=== PATIENT | male | born 1960 | race Caucasian/White ===

== ENCOUNTER → 2018-11-14 16:06 | Outpatient (CLI) | payer OTHER, SELFPAY ==
[2018-11-14 18:58] LABS: ALB/GLOB Ratio 1.5 RATIO (0.9-2.4); AST(SGOT) 36 U/L (15-37); Alanine Aminotransfer ALT/SGPT 61 U/L (16-61); Albumin, Serum 4.6 g/dL (3.2-5.0); Alkaline Phosphatase 88 U/L (45-117); Anion Gap 11 (5-15); BUN 18 mg/dL (7-18); BUN/Creat Ratio 18.1 RATIO (10-20); Chloride 103 mmol/L (98-107); Cholesterol 256 mg/dL (200); EST Glomerular Filtration Rate 82 mL/min (>60); Est Glom Filt Rate - Afr Amer 100 mL/min (>60); Glucose 120 mg/dL (74-106); High Density Lipoprotein 35 mg/dL; Potassium 4.1 mmol/L (3.5-5.1); Protein, Total 7.6 g/dL (6.4-8.2); Sodium Level 139 mmol/L (136-145); Triglycerides 639 mg/dL
== END ==
PROVIDERS: Family Provider Family Medicine; PCP Family Medicine; Referring Provider Family Medicine; Visit Provider Family Medicine
DX: I10 Essential (primary) hypertension (principal)
CPT/HCPCS: 36415; 80053; 80061

== ENCOUNTER 2018-11-30 18:52 | Emergency (ER) | payer OTHER, SELFPAY ==
[2018-11-30 18:54] VITALS: BP 180/110; PULSE 116; RESP 18; TEMP 36.5; O2SAT 98; BMI 33.9
--- NOTE | 2018-11-30 20:00 | CT_ITS ---
STUDY: CT ABDOMEN AND PELVIS WITHOUT CONTRAST REASON FOR EXAM: Male, 58 years old. Abdomen pain RADIATION DOSAGE (If Supplied By Facility): CTDIvol = ( 17.06 ) mGy, DLP = ( 958.91 ) mGycm TECHNIQUE: Transaxial images were obtained from the dome of the diaphragm to the symphysis pubis without oral contrast, and without intravenous contrast. Sagittal and coronal images were reconstructed. Individualized dose optimization techniques were used for this CT. COMPARISON: None. FINDINGS: The visualized lung bases are unremarkable. The visualized portions of the heart are within normal limits. There is decreased attenuation of the liver consistent with steatosis. The gallbladder is contracted. It otherwise has an unremarkable appearance. No biliary ductal dilatation. Normal spleen. Normal pancreas. Normal bilateral adrenal glands. Normal right kidney. There is mild hydronephrosis with perinephric stranding of the left kidney. There is mild hydroureter with note made of an obstructing distal left ureterovesical junction calculus measuring approximately 3 mm. Normal visualized stomach. Normal small intestine. Normal colon. There are a few scattered diverticula. There is non-visualization of the appendix. No inflammatory change in the right lower quadrant. Mild atherosclerosis of the aorta noted. No aneurysm. Normal inferior vena cava. Normal retroperitoneum. Normal urinary bladder. Prominent fat extends into the inguinal canals bilaterally. Normal osseous structures. Mild degenerative spondylosis of the spine noted. CT/Abdomen/Pelvis without Cont IMPRESSION: There is a 3 mm distal left ureterovesical junction calculus with associated left-sided hydroureter and mild hydronephrosis with perinephric stranding. Hepatic steatosis noted. See above. Electronically Signed: Anai Soto MD at 21:00 EDT , Service support ,
[2018-11-30] MEDS: 0.9% Normal Saline 1,000 ML 125 ML IV (20:11)
[2018-11-30] MEDS: HYDROmorphone 1 MG/ML Syringe IV ×2 (20:11→21:39)
[2018-11-30] MEDS: Ondansetron 4 MG/2 ML Vial IV (20:12)
[2018-11-30 20:27] LABS: Absolute Lymphocyte Count 2.12 X10^3/ul (0.83-4.51); Absolute Neutrophil Count 5.7 X10^3/uL (2.0-7.7); Basophil# 0.04 X10^3/uL; Basophil% 0.5 % (0-1); Eosinophil# 0.11 X10^3/uL; Eosinophils% 1.3 % (0-5); Hematocrit 42.4 % (40-54); Hemoglobin 15.4 g/dl (13.0-16.5); Lymphocyte # 2.12 X10^3/ul (4.0); Lymphocyte % 24.3 % (19-41); Mean Corp Hgb Conc 36.3 g/gl (32-36); Mean Platelet Vol. 10.8 fl (6.2-12.0); Monocyte# 0.71 X10^3/uL; Monocyte% 8.2 % (0-10); Neutrophil # 5.72 X10^3/uL (2.7-7.7); Neutrophil % 65.6 % (47-70); Platelet Count 287 K/mm3 (150-450); RBC Distribution Width CV 12.4 % (11.6-14.6); RBC Distribution Width SD 39.6 fl (35.1-43.9); Red Blood Count 4.82 M/mm3 (4.6-6.2); White Blood Count 8.7 K/mm3 (4.4-11.0)
[2018-11-30 20:39] LABS: ALB/GLOB Ratio 1.4 RATIO (0.9-2.4); AST(SGOT) 36 U/L (15-37); Alanine Aminotransfer ALT/SGPT 56 U/L (16-61); Albumin, Serum 4.4 g/dL (3.2-5.0); Alkaline Phosphatase 82 U/L (45-117); Anion Gap 6 (5-15); BUN 21 mg/dL (7-18); BUN/Creat Ratio 14.3 RATIO (10-20); Calcium,Total 8.9 mg/dL (8.5-10.1); Chloride 105 mmol/L (98-107); Creatinine, Serum 1.47 mg/dL (0.70-1.30); EST Glomerular Filtration Rate 53 mL/min (>60); Est Glom Filt Rate - Afr Amer 64 mL/min (>60); Estimated Creatinine Clearance 57.94 ml/min; Globulin 3.2 g/dL (2.2-4.2); Glucose 178 mg/dL (74-106); Potassium 3.9 mmol/L (3.5-5.1); Protein, Total 7.6 g/dL (6.4-8.2); Sodium Level 140 mmol/L (136-145)
[2018-11-30 20:44] LABS: POSITIVE COUNT NO; POSITIVE DIFFERENTIAL NO; POSITIVE MORPHOLOGY NO
[2018-11-30 20:52] LABS: Bacteria 0 SEEN /hpf (None Seen); Mucous, Urine 0 SEEN /hpf (<or=2+); Squamous Epithelial Cells - UA 0 SEEN /hpf (0-5)
[2018-11-30 20:54] LABS: Color, Urine Yellow (Yellow); Glucose, Dipstick 100 mg/dl (Normal); Ketone-Dipstick Negative (Negative); Leukocyte Esterase-Dipstick 25 /ul (Negative); Nitrite-Dipstick Negative (Negative); Occult Blood-Urine 250 /ul (Negative); Protein-Dipstick 15 mg/dl (Negative); Specific Gravity, Urine 1.025 (1.002-1.030); Urine Bilirubin Dipstick Negative (Negative); Urine Clarity Sl. Cloudy (Clear); Urine Urobilinogen Normal (Normal)
[2018-11-30 21:03] LABS: Red Blood Cells-Urine 25-50 SEEN /hpf (0-5); White Blood Cells 0-5 SEEN /hpf (0-5)
--- NOTE | 2018-11-30 21:28 | ED.DCSUM_ITS ---
- ER Visit Summary Date of Service: 11/30/18 Chief Complaint: [Abdominal pain History of Present Illness: The patient is a 58 M [presents the emergency department with abdominal pain that started around 5 PM. Patient rates his pain currently as an 8 out of 10 and describes it as lower abdomen. He attempted to induce vomiting x1 unsuccessfully. Patient has not had any diarrhea. Denies fever. Denies urinary symptoms. Patient is not had pain like this before. Patient has history of hypertension. Patient had prior hernia repair. [place] any blood in stool or black tarry stools.] Physical Examination: [HEENT-PERRLA, EOMI. Cranial nerves II through XII grossly intact. TMs clear. Mucous membranes moist. No adenopathy. Cardiovascular-regular rate and rhythm without murmur or ectopy Lungs-clear to auscultation, chest wall stable without crepitus or subcu emphysema Abdomen-normoactive bowel sounds, soft. Patient has tenderness diffusely over the lower abdomen. Patient has guarding. There is no rebound, rigidity, or perineal signs. Extremities-intact ?4, normal range of motion, normal pulses, atraumatic] Test Results: [CBC with differential showing of 8.7, hemoglobin 15, hematocrit 42, platelets 287. Chemistries unremarkable. Urinalysis showed 25-[address] flank showed a 3 mm left UVJ stone with hydronephrosis.] Emergency Department Course and Treatment: [Patient initially was medicated with Dilaudid and Zofran. Pain did improve and currently rates it a 5 out of 10 he will be given another milligram of Dilaudid and 50 mg of Toradol.] Treatment Plan: [Patient will be dispensed urine strainers and he will be treated with naproxen and [place]. Patient will be given referral to urology for follow-up. Patient advised to return if worsening pain, fever, vomiting, or condition should worsen anyway.] Disposition: [Discharged home in stable condition] Impression: [Kidney stone with colic] This note was generated with [email or web address] dictation software. It may contain incorrect words, spelling, and punctuation that were not noted in review of the chart prior to signing ED Disposition - Plan for ED Patient: Referrals: Angel Lee MD [Primary Care Provider] -
--- NOTE | 2018-11-30 21:28 | ED.DEP ---
ED Disposition - Plan for ED Patient: Instructions: ED Stone Renal W Colic Prescriptions: Hydrocodone Bitart/Apap 5-325 [[place] 5MG-325MG] 1 tab PO Q4H PRN PRN 2 Days #20 tab PRN Reason: Pain Ondansetron [Zofran Odt] 4 mg PO Q8H PRN PRN #10 tab PRN Reason: Nausea Naproxen [Naprosyn] 500 mg PO BID PRN #20 tab Referrals: Angel Lee MD [Primary Care Provider] - John Cordova MD [STAFF PHYSICIAN] - 5-7 Days
[2018-11-30 21:35] LABS: Lactic Acid 2.3 mmol/L (0.4-2.0)
[2018-11-30] MEDS: Ketorolac 15 MG/ML Vial IV (21:37)
[2018-11-30 21:53] VITALS: RESP 18
[2018-11-30] MEDS: Ondansetron ODT 4 MG Tablet PO (21:54)
[2018-11-30] MEDS: HYDROcodone Bitartrate/Apap 5/325 Tablet PO (21:54)
[2018-11-30 22:46] LABS: Reflex Lactate? N
== END 2018-11-30 22:03 | disposition home or self-care (01) ==
LOC: ED 20:20
PROVIDERS: Emergency Provider Emergency Medicine; Family Provider Family Medicine; PCP Family Medicine
DX: N13.2 Hydronephrosis with renal and ureteral calculous obstruction (principal); K76.0 Fatty (change of) liver, not elsewhere classified; I10 Essential (primary) hypertension
CPT/HCPCS: 74176; 80053; 81001; 83605; 85025; 96361; 96374; 96375; 96376; 99283; J7030; A4216; J2405

== ENCOUNTER → 2019-09-16 15:44 | Outpatient (CLI) | payer OTHER, SELFPAY ==
--- NOTE | 2019-09-16 | COLBX_PTH ---
PATIENT: JAMILA ARCHIBALD LOC: [facility] U#:[id number] AGE/SX: 65/M ROOM: RE09/16/[address]: Dr. Corey Mead MD : 1960 BED: DIS: SPEC #: [id number] RECD: 09/16/19 15:19 STATUS: ROBERT LAY #: [id number] OLIVIA: 09/16/19 00:[address]: Corey Mead DEPT: SURGICAL PATHOLOGY RECD BY: Elijah Bingham ENTERED: 09/17/19 08:04 SP TYPE: COLON BX OTHR DR: Dr. Ridge Lee MD [facility] Tissues: Sigmoid colon biopsy Procedures: Surgery Specimen Level IV HEADER OPERATION: Colonoscopy with polypectomy PRE-OP DIAGNOSIS: History polyps TISSUE SUBMITTED: Polyp proximal sigmoid, rule out adenoma MICROSCOPIC DIAGNOSIS Proximal sigmoid colon polyp, biopsy: Tubular adenoma. AM:jesús 09/18/19 MICROSCOPIC DESCRIPTION Slides are reviewed. GROSS DESCRIPTION Received in fixative is one container labeled with the patient's name and designated proximal sigmoid polyp. The specimen consists of one irregular fragment of light meredith soft tissue that measures 0.5 x 0.3 x 0.1 cm. The specimen is totally submitted in one cassette. / AM:jesús 09/17/19 TC:5 CPT: 69029
== END ==
PROVIDERS: PCP Family Medicine; Referring Provider Internal Medicine Gastroenterology; Visit Provider Internal Medicine Gastroenterology
DX: D12.5 Benign neoplasm of sigmoid colon (principal); Z86.010 Personal history of colon polyps
CPT/HCPCS: 88305

== ENCOUNTER → 2019-11-14 10:24 | Outpatient (CLI) | payer OTHER, SELFPAY ==
[2019-11-14 12:34] LABS: ALB/GLOB Ratio 1.2 RATIO (0.9-2.4); AST(SGOT) 21 U/L (15-37); Alanine Aminotransfer ALT/SGPT 36 U/L (16-61); Albumin, Serum 3.8 g/dL (3.2-5.0); Alkaline Phosphatase 62 U/L (45-117); Anion Gap 5 (5-15); BUN 24 mg/dL (7-18); BUN/Creat Ratio 18.2 RATIO (10-20); Calcium,Total 8.9 mg/dL (8.5-10.1); Chloride 99 mmol/L (98-107); Creatinine, Serum 1.32 mg/dL (0.70-1.30); EST Glomerular Filtration Rate 59 mL/min (>60); Est Glom Filt Rate - Afr Amer 72 mL/min (>60); Globulin 3.3 g/dL (2.2-4.2); Glucose 364 mg/dL (74-106); PSA,Total - Annual Screen 1.62 ng/mL (0.00-4.00); Potassium 4.4 mmol/L (3.5-5.1); Protein, Total 7.1 g/dL (6.4-8.2); Sodium Level 131 mmol/L (136-145); Thyroid Stim Hormone (TSH) 2.44 uIU/mL (0.358-3.74)
== END ==
PROVIDERS: PCP Family Medicine; Visit Provider Family Medicine
DX: E11.9 Type 2 diabetes mellitus without complications (principal); Z12.5 Encounter for screening for malignant neoplasm of prostate
CPT/HCPCS: 36415; 80053; 84153; 84403; 84443; G0103

== ENCOUNTER → 2020-04-29 14:23 | Outpatient (CLI) | payer OTHER, SELFPAY ==
[2020-04-29 18:57] LABS: Anion Gap 10 (5-15); BUN 21 mg/dL (7-18); BUN/Creat Ratio 15.2 RATIO (10-20); Calcium,Total 9.1 mg/dL (8.5-10.1); Chloride 104 mmol/L (98-107); Creatinine, Serum 1.38 mg/dL (0.70-1.30); EST Glomerular Filtration Rate 56 mL/min (>60); Est Glom Filt Rate - Afr Amer 68 mL/min (>60); Glucose 137 mg/dL (74-106); Potassium 3.6 mmol/L (3.5-5.1); Sodium Level 138 mmol/L (136-145)
== END ==
PROVIDERS: PCP Family Medicine; Referring Provider Family Medicine; Visit Provider Family Medicine
DX: E87.1 Hypo-osmolality and hyponatremia (principal)
CPT/HCPCS: 36415; 80048

== ENCOUNTER → 2020-09-08 08:46 | Outpatient (CLI) | payer OTHER, SELFPAY ==
[2020-09-08 10:45] LABS: ALB/GLOB Ratio 1.1 RATIO (0.9-2.4); AST(SGOT) 24 U/L (15-37); Alanine Aminotransfer ALT/SGPT 44 U/L (16-61); Albumin, Serum 3.9 g/dL (3.2-5.0); Alkaline Phosphatase 71 U/L (45-117); Anion Gap 8 (5-15); BUN 20 mg/dL (7-18); BUN/Creat Ratio 17.9 RATIO (10-20); Calcium,Total 8.8 mg/dL (8.5-10.1); Chloride 105 mmol/L (98-107); Cholesterol 150 mg/dL (200); Creatinine, Serum 1.12 mg/dL (0.70-1.30); EST Glomerular Filtration Rate 71 mL/min (>60); Est Glom Filt Rate - Afr Amer 86 mL/min (>60); Globulin 3.5 g/dL (2.2-4.2); Glucose 198 mg/dL (74-106); High Density Lipoprotein 30 mg/dL; Potassium 4.2 mmol/L (3.5-5.1); Protein, Total 7.4 g/dL (6.4-8.2); Sodium Level 136 mmol/L (136-145); Thyroid Stim Hormone (TSH) 4.22 uIU/mL (0.358-3.74); Triglycerides 341 mg/dL; Very Low Density Lipoprotein 68 mg/dL (5-40)
[2020-09-09 09:43] LABS: T4 Free Direct 0.89 ng/dL (0.76-1.46)
== END ==
PROVIDERS: PCP Family Medicine; Referring Provider Family Medicine; Visit Provider Family Medicine
DX: I10 Essential (primary) hypertension (principal); E11.9 Type 2 diabetes mellitus without complications
CPT/HCPCS: 36415; 80053; 80061; 84403; 84439; 84443

== ENCOUNTER → 2021-03-18 09:46 | Outpatient (CLI) | payer OTHER, SELFPAY ==
[2021-03-18 12:18] LABS: Insulin 15.9 mU/L (2.6-37.6)
[2021-03-18 12:29] LABS: ALB/GLOB Ratio 1.2 RATIO (0.9-2.4); AST(SGOT) 22 U/L (15-37); Alanine Aminotransfer ALT/SGPT 44 U/L (16-61); Albumin, Serum 4.1 g/dL (3.2-5.0); Alkaline Phosphatase 71 U/L (45-117); Anion Gap 5 (5-15); BUN 28 mg/dL (7-18); BUN/Creat Ratio 24.3 RATIO (10-20); Chloride 104 mmol/L (98-107); Cholesterol 155 mg/dL (200); Creatinine, Serum 1.15 mg/dL (0.70-1.30); EST Glomerular Filtration Rate 69 mL/min (>60); Est Glom Filt Rate - Afr Amer 84 mL/min (>60); Globulin 3.4 g/dL (2.2-4.2); Glucose 219 mg/dL (74-106); High Density Lipoprotein 33 mg/dL; Potassium 4.6 mmol/L (3.5-5.1); Protein, Total 7.5 g/dL (6.4-8.2); Sodium Level 135 mmol/L (136-145); T4 Free Direct 0.83 ng/dL (0.76-1.46); Thyroid Stim Hormone (TSH) 3.13 uIU/mL (0.358-3.74); Triglycerides 354 mg/dL; Very Low Density Lipoprotein 71 mg/dL (5-40)
== END ==
PROVIDERS: PCP Family Medicine; Referring Provider Family Medicine; Visit Provider Family Medicine
DX: E11.9 Type 2 diabetes mellitus without complications (principal); E03.9 Hypothyroidism, unspecified
CPT/HCPCS: 36415; 80053; 80061; 83525; 84439; 84443; 84681

== ENCOUNTER → 2021-06-09 07:04 | Outpatient (CLI) | payer OTHER, SELFPAY | PROVIDERS: PCP Family Medicine; Referring Provider Family Medicine; Visit Provider Family Medicine | DX: Z20.822 Contact with and (suspected) exposure to COVID-19 (principal) | CPT/HCPCS: 87635; U0005; U0003 ==

== ENCOUNTER → 2021-06-23 09:30 | Outpatient (CLI) | payer OTHER, SELFPAY ==
--- NOTE | 2021-06-23 09:35 | RAD_ITS ---
STUDY: X-RAY - LEFT SHOULDER REASON FOR EXAM: Male, 61 years old. Frozen shoulder. TECHNIQUE: 4 view(s) of the shoulder. COMPARISON: None. FINDINGS: Mild arthrosis of the glenohumeral joint. Moderate arthrosis of the AC joint. Normal acromion. Normal humeral head and visualized proximal humerus. Calcific tendinitis. Normal visualized pulmonary apex. RAD/Shoulder min 2 Views IMPRESSION: Mild arthrosis of the glenohumeral joint. Moderate arthrosis of the AC joint. Calcific tendinitis. Electronically Signed: Adalberto Kim MD at 10:13 EST , Service support ,
== END ==
PROVIDERS: PCP Family Medicine; Referring Provider Family Medicine; Visit Provider Family Medicine
DX: M75.00 Adhesive capsulitis of unspecified shoulder (principal)
CPT/HCPCS: 73030

== ENCOUNTER 2021-07-12 08:00 | Outpatient (RCR) | payer OTHER, SELFPAY ==
--- NOTE | 2021-06-29 11:13 | HP.PTEVAL ---
Patient's Visit Information JAMILA ARCHIBALD is a 61 year old M referred to Physical Therapy by Dr. Angel Lee MD with a diagnosis of L frozen shoulder. Date of Evaluation: 06/29/21 Physical Therapist: Dusty Myers DPT, OCS, CSCS - Visit Plan Frequency: 1-2x /Week Duration: 4-6 Weeks Plan: weekly to start via HEP PROM and AROM and progression of overpressure naty strengthening. Next session; check ROM and pain and progress HEP to more aggressive and or strenggthening. If not improving, may need to increase frequency for modalities however patient wishes to try at home first due to large copay. 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 X rays were OK. 5 weeks later was working an eighth grade game tripped running and landed on L shoulder. Hurt bad. Has had pain ever since and this is not going away. 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 Is usually comfortable at rest. Had covid 3 weks ago and has not done games since then and wont through end of year. L arm doesn't work like it should. Was afraid to move it, Now is moving it more and has gotten a little better. Sleep is interrupted but not in the last week. Sleeps in l side sometimes. Gets sharp pain every now and then. Reaching into fridge with L hand hurts. 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 Would not be able to get in a fight but hasn't happened and is otherwise OK. Enjoys woodworking. Reaching up with L hand is challenging. - Pain L shoulder Pain Intensity (Out of 10): 0 Pain Intensity Range: 0, 9 - Objective Posture is forward head and elevated/protracted scap with some tightness in pecs B. Cervical aROM WFL. Scapular ROM symmetrical and WFL. Elbow and wrist AROM WFL and painfree,. R shoulder aROM flexion 155, abd 150, ext rotation 65 and IR to L4. L shoulder AROM flexion 125, abd 110, ext rotation 28 and IR to PSIS. PROM same aas AROM on L shoulder and painful at end range of all motions A/PROM. reflexes 2/3 bi and tri. sensation UE WNL to gross lgiht touch UE. Strength 4+ B elbows and wrists and 4 B shoulder flexion, ab IR, ER without pain. - drop arm. - labral tests. - sulcus. Pain with HK and neer(end ROM) - Balance/Special Test Scores Quick DASH Score: 18.1800 - Goals Goal 1:: 155 flexion, 55 ext rot, L5 IR without pain in L shoulder to enhance funciton Goal Time Frame: 4-6 Weeks Goal 2:: Patient feel motion and pain leading to 90% improvement in overall activities. Goal Time Frame: 4-6 Weeks Goal 3:: 15 or less score on quick dash Goal Time Frame: 4-6 Weeks Goal 4:: I approp HEP to manage condition. Goal Time Frame: 4-6 Weeks - Rehabilitation Potential Physical Therapy Diagnosis: L shoulder pain and limited ROM effecting function. Rehabilitation Potential: Fair - Anticipated Interventions Patient/Client Instruction: Educate patient on: Condition, Plan of Care For the Purpose of:: To decrease pain, To increase ROM, To improve muscle performance and motor function, To increase tolerance to activity/condition/position Therapeutic Exercise to Include: Strength training, Passive ROM, Active ROM For the Purpose of:: To decrease pain, To increase ROM, To improve muscle performance and motor function, To increase tolerance to activity/condition/position, To improve ability of physical actions for home/community/work/leisure Manual Therapy Techniques to Include: Mobilization, Soft tissue mobilization For the Purpose of:: To increase ROM Thank you for the opportunity to evaluate your patient. For Medicare and Medicare HMO plans, please review the plan of care and approve it. It will need to be FAXED BACK to us at [phone] for Medicare purposes. For Medicare only, by signing this I certify the plan of care. Please let me know if there are questions or concerns regarding this plan of care. Physician Signature: Date:
--- NOTE | 2021-09-22 10:28 | HP.PTDCNRP_ITS ---
JAMILA ARCHIBALD was seen in my office for initial evaluation on 06/29/21. The following Plan of Care was established for this patient: Initial Frequency: 1-2x /Week Initial Duration: 4-6 Weeks Patient/Client Instruction: Educate patient on: Condition, Plan of Care For the Purpose of:: To decrease pain, To increase ROM, To improve muscle performance and motor function, To increase tolerance to activity/condition/position Therapeutic Exercise to Include: Strength training, Passive ROM, Active ROM For the Purpose of:: To decrease pain, To increase ROM, To improve muscle performance and motor function, To increase tolerance to a ctivity/condition/position, To improve ability of physical actions for home/community/work/leisure Manual Therapy Techniques to Include: Mobilization, Soft tissue mobilization For the Purpose of:: To increase ROM This patient was last seen in our office 07/12/21. Pertinent comments regarding their Physical therapy will appear below: Pt seen two visits of POC and was noticably better. He cancelled his next visit and did not schedule any further in his POC. At this point, it has been over 2 months and I will discontinue him from my care. At this point I will be discontinuing this patient from physical therapy. I would be happy to see this patient again in the future if found appropriate by the physician. Thank you! Dusty Myers, DPT, OCS, CSCS Balance/Gait/Functional tests - Balance/Special Test Scores Quick DASH Score: 18.1800
== END 2021-07-12 19:00 | disposition home or self-care (01) ==
LOC: PT 08:00
PROVIDERS: PCP Family Medicine; Referring Provider Family Medicine; Visit Provider Family Medicine
DX: M75.02 Adhesive capsulitis of left shoulder (principal)
CPT/HCPCS: 97110; 97161

== ENCOUNTER 2021-10-12 09:13 | Outpatient (CLI) | payer OTHER, SELFPAY ==
[2021-10-12 10:28] LABS: Anion Gap 6 (5-15); BUN 22 mg/dL (7-18); BUN/Creat Ratio 19.5 RATIO (10-20); Calcium,Total 8.8 mg/dL (8.5-10.1); Chloride 103 mmol/L (98-107); Creatinine, Serum 1.13 mg/dL (0.70-1.30); EST Glomerular Filtration Rate 70 mL/min (>60); Est Glom Filt Rate - Afr Amer 85 mL/min (>60); Glucose 190 mg/dL (74-106); Sodium Level 136 mmol/L (136-145); Thyroid Stim Hormone (TSH) 4.81 uIU/mL (0.358-3.74)
[2021-10-13 14:25] LABS: T4 Free Direct 0.91 ng/dL (0.76-1.46)
== END 2021-10-12 23:59 | disposition home or self-care (01) ==
LOC: MFPLAB 09:16
PROVIDERS: PCP Family Medicine; Referring Provider Family Medicine; Visit Provider Family Medicine
DX: R79.89 Other specified abnormal findings of blood chemistry (principal); E11.9 Type 2 diabetes mellitus without complications; Z12.5 Encounter for screening for malignant neoplasm of prostate
CPT/HCPCS: 36415; 80048; 84153; 84439; 84443; G0103

== ENCOUNTER → 2023-01-19 | Outpatient (CLI) | payer OTHER, SELFPAY ==
[2023-01-19 10:39] LABS: Vitamin B12 377 pg/mL (211-911)
[2023-01-19 10:43] LABS: ALB/GLOB Ratio 1.2 RATIO (0.9-2.4); AST(SGOT) 24 U/L (15-37); Alanine Aminotransfer ALT/SGPT 43 U/L (16-61); Albumin, Serum 3.9 g/dL (3.2-5.0); Alkaline Phosphatase 76 U/L (45-117); Anion Gap 10 (5-15); BUN 27 mg/dL (7-18); BUN/Creat Ratio 18.4 RATIO (10-20); Calcium,Total 8.7 mg/dL (8.5-10.1); Chloride 106 mmol/L (98-107); Cholesterol 125 mg/dL (200); Creatinine, Serum 1.47 mg/dL (0.70-1.30); EST Glomerular Filtration Rate 52 mL/min (>60); Est Glom Filt Rate - Afr Amer 63 mL/min (>60); Globulin 3.3 g/dL (2.2-4.2); Glucose 173 mg/dL (74-106); High Density Lipoprotein 30 mg/dL; Potassium 4.2 mmol/L (3.5-5.1); Protein, Total 7.2 g/dL (6.4-8.2); Sodium Level 138 mmol/L (136-145); T4 Free Direct 0.81 ng/dL (0.76-1.46); Thyroid Stim Hormone (TSH) 4.36 uIU/mL (0.358-3.74); Triglycerides 320 mg/dL; Very Low Density Lipoprotein 64 mg/dL (5-40)
== END | disposition home or self-care (01) ==
LOC: MFPLAB 09:33
PROVIDERS: PCP Family Medicine; Visit Provider Family Medicine
DX: E03.8 Other specified hypothyroidism (principal); E11.9 Type 2 diabetes mellitus without complications
CPT/HCPCS: 36415; 80053; 80061; 82607; 84439; 84443

== ENCOUNTER → 2023-02-20 | Outpatient (CLI) | payer OTHER, SELFPAY ==
[2023-02-20 13:21] LABS: Anion Gap 6 (5-15); BUN 20 mg/dL (7-18); BUN/Creat Ratio 19.2 RATIO (10-20); Calcium,Total 9.3 mg/dL (8.5-10.1); Chloride 106 mmol/L (98-107); Creatinine, Serum 1.04 mg/dL (0.70-1.30); EST Glomerular Filtration Rate 77 mL/min (>60); Est Glom Filt Rate - Afr Amer 93 mL/min (>60); Glucose 134 mg/dL (74-106); Sodium Level 137 mmol/L (136-145)
== END | disposition home or self-care (01) ==
LOC: MFPLAB 10:28
PROVIDERS: PCP Family Medicine; Visit Provider Family Medicine
DX: E03.8 Other specified hypothyroidism (principal)
CPT/HCPCS: 36415; 80048

== ENCOUNTER → 2023-10-16 | Outpatient (CLI) | payer SELFPAY ==
[2023-10-16 12:55] LABS: Vitamin B12 328 pg/mL (211-911)
[2023-10-16 12:59] LABS: ALB/GLOB Ratio 1.2 RATIO (0.9-2.4); AST(SGOT) 34 U/L (15-37); Alanine Aminotransfer ALT/SGPT 53 U/L (16-61); Alkaline Phosphatase 91 U/L (45-117); Anion Gap 9 (5-15); BUN 18 mg/dL (7-18); BUN/Creat Ratio 15.7 RATIO (10-20); Calcium,Total 8.6 mg/dL (8.5-10.1); Chloride 106 mmol/L (98-107); Creatinine, Serum 1.15 mg/dL (0.70-1.30); EST Glomerular Filtration Rate 69 mL/min (>60); Est Glom Filt Rate - Afr Amer 83 mL/min (>60); Globulin 3.2 g/dL (2.2-4.2); Glucose 181 mg/dL (74-106); PSA,Total - Annual Screen 1.58 ng/mL (0.00-4.00); Potassium 4.1 mmol/L (3.5-5.1); Protein, Total 7.2 g/dL (6.4-8.2); Sodium Level 138 mmol/L (136-145); T4 Free Direct 0.77 ng/dL (0.76-1.46); Thyroid Stim Hormone (TSH) 3.45 uIU/mL (0.358-3.74)
== END | disposition home or self-care (01) ==
LOC: MFPLAB 09:49
PROVIDERS: PCP Family Medicine; Visit Provider Family Medicine
DX: E11.65 Type 2 diabetes mellitus with hyperglycemia (principal); R79.89 Other specified abnormal findings of blood chemistry; Z12.5 Encounter for screening for malignant neoplasm of prostate
CPT/HCPCS: 36415; 80053; 82607; 84153; 84439; 84443; G0103

== ENCOUNTER → 2024-05-29 | Outpatient (CLI) | payer OTHER, SELFPAY ==
[2024-05-29 12:36] LABS: ALB/GLOB Ratio 1.2 RATIO (0.9-2.4); AST(SGOT) 23 U/L (15-37); Alanine Aminotransfer ALT/SGPT 42 U/L (16-61); Albumin, Serum 3.8 g/dL (3.2-5.0); Alkaline Phosphatase 83 U/L (45-117); Anion Gap 6 (5-15); BUN 13 mg/dL (7-18); BUN/Creat Ratio 13.5 RATIO (10-20); Calcium,Total 8.7 mg/dL (8.5-10.1); Chloride 106 mmol/L (98-107); Cholesterol 138 mg/dL (200); Creatinine, Serum 0.97 mg/dL (0.70-1.30); EST Glomerular Filtration Rate 84 mL/min (>60); Est Glom Filt Rate - Afr Amer 101 mL/min (>60); Globulin 3.2 g/dL (2.2-4.2); Glucose 239 mg/dL (74-106); High Density Lipoprotein 34 mg/dL; Potassium 4.3 mmol/L (3.5-5.1); Sodium Level 135 mmol/L (136-145); Triglycerides 385 mg/dL; Very Low Density Lipoprotein 77 mg/dL (5-40)
== END | disposition home or self-care (01) ==
PROVIDERS: PCP Family Medicine; Visit Provider Family Medicine
DX: E11.69 Type 2 diabetes mellitus with other specified complication (principal)
CPT/HCPCS: 36415; 80053; 80061

== ENCOUNTER 2024-12-01 17:32 | Emergency (ER) | payer OTHER, SELFPAY ==
[2024-12-01 17:34] VITALS: BP 169/103; PULSE 107; RESP 16; TEMP 36.6; O2SAT 98; BMI 31.4
[2024-12-01 17:35] VITALS: BP 169/103; PULSE 107; RESP 16; TEMP 36.6; O2SAT 98
[2024-12-01] MEDS: Cephalexin 250 MG Capsule 500 MG PO (18:52)
[2024-12-01] MEDS: Smz/Tmp Ds Tablet 1 TABLET PO (18:52)
[2024-12-01] MEDS: Diphth,Pertuss(Acell),Tet Vac 0.5 ML Vial IM (18:52)
[2024-12-01 19:32] VITALS: BP 129/86; PULSE 87; O2SAT 97
[2024-12-01 19:34] VITALS: BP 129/86; PULSE 87; RESP 16; TEMP 36.6; O2SAT 97
--- NOTE | 2024-12-02 15:42 | EX.ED.DYSGE1 ---
HPI History of Present Illness Chief Complaint: Cellulitis Informant: patient and spouse/S.O. Narrative Narrative: Presented noting redness to his right lower leg today. States he had a abrasion on his lower leg few days ago he does not know how. However states they are moving to another home. Denies fever or chills. Denies history of kidney injury. Tetanus unknown. PFSH PFSH Medical History no medical history Home Medications ?Medication ?Instructions ?Recorded ?Last Taken ?Type aspirin 81 mg chewable tablet 81 mg PO DAILY@0800 11/30/18 Unknown History atorvastatin 40 mg tablet 40 mg PO QHS 11/30/18 Unknown History hydrochlorothiazide 25 mg tablet 25 mg PO DAILY 11/30/18 Unknown History lisinopril 20 mg tablet (Zestril) 20 mg PO DAILY 11/30/18 Unknown History naproxen 500 mg tablet 500 mg PO BID PRN #20 tabs 11/30/18 Unknown Rx ondansetron 4 mg disintegrating 4 mg PO Q8H PRN PRN Nausea #10 tabs 11/30/18 Unknown Rx tablet cephalexin 500 mg capsule 500 mg PO Q6 #28 CAPSULES 12/01/24 Unknown Rx sulfamethoxazole 800 1 tab PO BID #14 TABLETS 12/01/24 Unknown Rx mg-trimethoprim 160 mg tablet Allergy/AdvReac Type Severity Reaction Status Date / Time No Known Allergies Allergy Verified 12/01/24 17:36 Family History no significant family his Surgical History no surgical history Social History Smoking Status: Former smoker ROS ROS ED Constitutional Constitutional ED: Denies fever(s) Cardiovascular Cardiovascular: Denies chest pain Respiratory/Chest Respiratory/Chest: Denies cough Gastrointestinal Gastrointestinal: Denies diarrhea or vomiting Musculoskeletal Musculoskeletal: Denies none Integumentary Reports Abrasions, rash and other Neurologic Neurologic: Denies weakness EXAM Physical Exam Const Vital Signs: 12/01/24 17:34 12/01/24 17:35 12/01/24 19:32 Temperature 97.9 F 97.9 F Temperature Source Oral Oral Pulse Rate 107 H 107 H 87 Respiratory Rate 16 16 Blood Pressure 169/103 H 169/103 H 129/86 H Blood Pressure Mean 125 125 100 Pulse Ox 98 98 97 Oxygen Delivery Method Room Air Room Air Room Air 12/01/24 19:34 Temperature 97.9 F Temperature Source Pulse Rate 87 Respiratory Rate 16 Blood Pressure 129/86 H Blood Pressure Mean 100 Pulse Ox 97 Oxygen Delivery Method Positive well nourished and well developed General Appearance ED: well developed HEENT normocephalic and atraumatic Eyes General Eye ED: Yes normal appearance of both eyes Neck full ROM Resp normal respiratory effort and normal air movement Cardio regular rate and regular rhythm GI soft to palpation Extremity full ROM Extremity Narrative: Right lower extremity: Abrasion noted anterior lower leg with scabbing. Palm sized erythema medial to the abrasion on superior aspect. No streaking no induration. No drainage. No fluctuance. Soft compartments. Neuro oriented x3 Skin no rashes or lesions noted and no wounds MDM MDM MDM Narrative Medical decision making narrative: Interventions / MDM: Differential diagnosis:Abrasion, cellulitis Diagnosis considered but do not suspect: N/A My EKG interpretation: N/A Imaging independently reviewed and interpreted by myself: N/A External documents reviewed: Previous labs BMP normal creatinine. Test considered but not ordered:N/A ED course: Nontoxic, vital signs stable. Previous abrasion now noticing erythema. Likely results from the abrasion. This area was outlined. Normal creatinine from previous labs. Is covered with Keflex and Bactrim. Tetanus updated. Return precautions discussed. All questions were answered. Re-evaluation: stable Disposition discussed with patient/family/significant other: Patient and significant other Case discussed with consulting clinician: N/A This note was generated with [employer] dictation software. It may contain incorrect words, spelling, and punctuation that were not noted in checking the note before signing. Discharge Plan Triage Chief Complaint: Cellulitis ED Provider: Bhupinder Fontaine Dx/Rx/DC Orders Clinical Impression: Abrasion of leg, right, Cellulitis of leg, right, Tetanus toxoid vaccination administered at current visit Instructions: Cellulitis Dc Prescriptions: New sulfamethoxazole-trimethoprim 800-160 mg tablet 1 tab PO BID Qty: 14 0RF cephalexin 500 mg capsule 500 mg PO Q6 Qty: 28 0RF No Action atorvastatin 40 MG tablet 40 mg PO QHS lisinopril [Zestril] 20 MG tablet 20 mg PO DAILY aspirin 81 MG tablet,chewable 81 mg PO DAILY@0800 hydrochlorothiazide 25 MG tablet 25 mg PO DAILY ondansetron 4 MG tablet 4 mg PO Q8H PRN PRN (Reason: Nausea) Qty: 10 0RF naproxen 500 MG tablet 500 mg PO BID PRN Qty: 20 0RF Primary Care Provider: Ridge Lee Referrals: Ridge Lee MD [Primary Care Provider] - 1 Week Activity Restrictions/Additional Instructions: Your tetanus was updated. Your erythema was outlined. Take and finish antibiotic as prescribed. Wound care as discussed. Symptoms worsen or develop any fevers, return to the ED for reevaluation. Print Language: Setswana Disposition Disposition: Home, Self Care Discharge Date/Time: 12/01/24 19:41
== END 2024-12-01 19:41 | disposition home or self-care (01) ==
PROVIDERS: Emergency Provider Emergency Medicine; PCP Family Medicine; Visit Provider Emergency Medicine
DX: L03.115 Cellulitis of right lower limb (principal); Z87.891 Personal history of nicotine dependence; S80.811A Abrasion, right lower leg, initial encounter; Z23 Encounter for immunization
CPT/HCPCS: 90715; 99282

== ENCOUNTER → 2025-05-06 | Outpatient (CLI) | payer OTHER, SELFPAY ==
[2025-05-06 13:08] LABS: AST(SGOT) 28 U/L (<=37); Alanine Aminotransfer ALT/SGPT 38 U/L (<=46); Albumin, Serum 4.3 g/dL (3.4-4.8); Alkaline Phosphatase 79 U/L (40-129); Anion Gap 11 (5-15); BUN 18 mg/dL (4-19); BUN/Creat Ratio 20.2 RATIO (10-20); Calcium,Total 9.1 mg/dL (7.6-11.0); Carbon Dioxide 23.5 mmol/L (21.0-32.0); Chloride 103 mmol/L (98-108); Cholesterol 131 mg/dL (<=200); Globulin 2.5 g/dL (2.2-4.2); Glucose 177 mg/dL (70-99); Low Density Lipoprotein Calc. 65 mg/dL; Potassium 4.6 mmol/L (3.3-5.1); Triglycerides 201 mg/dL; Very Low Density Lipoprotein 40 mg/dL (5-40); cholesterol:hdl ratio screen 3.99
[2025-05-06 14:04] LABS: PSA,Total - Annual Screen 1.32 ng/mL (0.02-4.00); Vitamin D,25 Hydroxy 25.5 ng/mL (30-100)
== END | disposition home or self-care (01) ==
LOC: MTLAB 10:12
PROVIDERS: PCP Family Medicine; Referring Provider Family Medicine; Visit Provider Family Medicine
DX: E11.65 Type 2 diabetes mellitus with hyperglycemia (principal); Z12.5 Encounter for screening for malignant neoplasm of prostate; R79.89 Other specified abnormal findings of blood chemistry
CPT/HCPCS: 36415; 80053; 80061; 82306; 84153; 84439; 84443; G0103